=== PATIENT | male | born 1985 | race Two or more races ===

== ENCOUNTER 2025-01-18 22:42 | Emergency (ER) | payer MEDICAID, SELFPAY ==
[2025-01-18 22:42] VITALS: BMI 37.0
--- NOTE | 2025-01-18 22:45 | EKG_ITS ---
[facility] Test Date: 2025-01-18 Pat Name: KEVIN DIAS Department: Room: - Gender: Male [employer]: : 1985 Requested By: ED Temporary Provider Order Number: [id number] Reading MD: ED Temporary Provider Measurements Intervals [place] Rate: 76 P: 28 IN: 138 QRS: 81 QRSD: 110 T: 31 QT: 363 QTc: 409 Interpretive Statements SINUS RHYTHM Compared to ECG 11/05/2020 01:51:50 Intraventricular conduction delay no longer present /store/S0/[id number]
[2025-01-18 22:54] VITALS: BP 157/96; PULSE 73; RESP 18; TEMP 36.7; O2SAT 98
--- NOTE | 2025-01-18 23:04 | XR_ITS ---
Examination: Upright PA chest single view Technique: Upright PA chest single view Exam date and time: January 18, 2025 11:11 PM Indications: Left-sided chest pain beginning 2 days ago. Findings: Normal heart size. Lungs are clear. The osseous structures are intact Impression: No active disease
[2025-01-19 01:26] VITALS: BP 147/80; PULSE 78; RESP 16; TEMP 36.7; O2SAT 96
--- NOTE | 2025-01-19 02:08 | EDNOTE_ITS ---
ED Chest Pain RME/HPI General Chief Complaint: Chest Pain Stated Complaint: LEFT SIDE CHEST TINGLING X 2DAYS Time Seen by Provider: 01/18/25 23:04 Arrival date/time: 01/18/25 22:42 39M with no significant PMH presents to ED with 2 days of intermittent L-sided CP that is somewhat worse with movement. Patient denies URI symptoms and SOB. Limitations: no limitations Related Data Previous Rx's ?Medication ?Instructions ?Recorded cephalexin 500 mg capsule 500 mg PO QID #40 caps 03/15 Allergies Allergy/AdvReac Type Severity Reaction Status Date / Time No Known Allergies Allergy Verified 03/13/23 18:17 Review of Systems Review of Systems Systems Reviewed: All systems reviewed, normal except as documented Constitutional Constitutional: Reports system reviewed and no additional complaints, except as documented, Denies fever(s) and Denies headache(s) ENT Ears, Nose, Mouth, and Throat: Denies disequilibrium and Denies headache(s) Cardiovascular Cardiovascular: Reports system reviewed and no additional complaints, except as documented, Reports as per HPI, Reports chest pain and Denies dyspnea Respiratory Respiratory: Reports system reviewed and no additional complaints, except as documented, Denies cough and Denies dyspnea Gastrointestinal Gastrointestinal: Reports system reviewed and no additional complaints, except as documented, Denies abdominal pain, Denies nausea and Denies vomiting Neurologic Neurologic: Reports system reviewed and no additional complaints, except as documented, Denies confusion, Denies disequilibrium and Denies headache(s) Psychiatric Psychiatric: Denies confusion Past Medical History Past Medical History NEUROLOGIC: Negative Cerebrovascular Accident or Seizures CARDIAC: Positive Cellulitis (Anterior right lower leg); Negative Cardiac Disorders, Congestive Heart Failure or Hypertension RESPIRATORY: Negative Chronic Obstructive Pulmonary Disease (COPD), Asthma or Tuberculosis GASTROINTESTINAL: Negative Hepatitis, Cirrhosis or Pancreatitis GENITOURINARY: Negative Renal Disease or Dialysis MUSCULOSKELETAL: Positive Musculoskeletal Disorders (Right lower leg debridment 7 years ago, infected wound) and Fractures (Fractured left elbow at a kid) ENDOCRINE: Negative Diabetes Mellitus Type 1, Diabetes Mellitus Type 2, Hypoglycemia or Hyperthyroidism HEMATOLOGIC: Negative Anemia or Sickle Cell Disease PSYCHO/SOCIAL: Negative Depression or Anxiety OTHER HISTORY: Negative Blood Transfusions or Cancer Social History SMOKING STATUS: Never smoker SUBSTANCE USE: does not use ED Exam General Limitations: Present no limitations General appearance: Present alert, in no apparent distress and anxious Head Head exam: Present atraumatic Eye Eye exam: Present normal appearance, PERRL and EOMI ENT ENT exam: Present normal exam, normal oropharynx and mucous membranes moist Neck Neck exam: Present normal inspection, full ROM and trachea midline Chest Chest inspection: Present normal inspection and symmetric chest wall rise Respiratory Respiratory exam: Present normal lung sounds bilaterally Cardiovascular Cardiovascular exam: Present regular rate, normal rhythm and normal heart sounds Abdominal Exam Abdominal exam: Present soft and normal bowel sounds Extremities Exam Extremities exam: Present normal inspection and full ROM Back Exam Back exam: Present normal inspection and full ROM Neurological Exam Neurological exam: Present alert, oriented X3 and CN II-XII intact Psychiatric Psychiatric exam: Present normal affect and normal mood Skin Skin exam: Present warm, dry, intact and normal color Course Quality Measures none Orders Category Date Time Status EKG (ED ONLY) *Do not use* NOW Care 01/18/25 22:45 Completed EKG (ED Only) Stat Exams 01/18/25 22:45 Draft XR chest 1V portable Stat Exams 01/18/25 23:04 Completed Vital Signs Vital signs: Vital Signs Temperature 98.1 F 01/18/25 22:54 Pulse Rate 73 01/18/25 22:54 Respiratory Rate 18 01/18/25 22:54 Blood Pressure 157/96 H 01/18/25 22:54 Pulse Oximetry (%) 98 01/18/25 22:54 Oxygen Delivery Method Room Air 01/18/25 22:54 O2 at 98% on RA and WNLs Chest Pain MDM Narrative MDM Narrative:: 39M with no significant PMH presents to ED with 2 days of intermittent L-sided CP that is somewhat worse with movement. Patient denies URI symptoms and SOB. Physical exam reveals clear lungs. RRR. Patient is afebrile, alert, but anxious. EKG is NSR. CXR normal. Patient observed for 2 hours w/o neg changes; CP improved w/o any intervention. Likely anxiety-related. Patient data External records reviewed:: [facility] previous records Clinical information provided by:: patient Social determinants that could affect healthcare access:: none Patient has the following chronic illnesses:: none How is presenting disease/condition affected by chronic disease/condition?: no chronic disease Evaluation data The following diagnostics were reviewed and interpreted by me:: radiology exam(s) and EKG tracing(s) Lab and/or radiology exams considered but not ordered:: ordered Interpretation Summary: above Medications / Prescriptions Medications or Prescriptions considered but not ordered:: not ordered Medication administrations:: n/a Consultations Consultation(s) initiated? (list below): No Diagnosis Chest Pain Differential Diagnosis: fracture of rib, pneumothorax, stable angina, unstable angina pectoris, atypical chest pain, st elevation myocardial infarction, costochondritis, chest pain, biliary colic and other (anxiety, PE) Most likely diagnosis given after review of the tests above:: atypical chest pain Admission Indicated Admission indicated?: not indicated Admission Request Was there a request for admission?: No Disposition Plan Disposition Plan: Discharge Discharge Attestation Discharge Attestation: The patient and all family members were given an opportunity to ask questions and understood the discharge instructions. Discharge instructions specifically effects, indications for sooner follow up or return to the emergency department, and the expected course of current diagnosis. Patient condition: Stable Discharge Plan Plan Patient Disposition: HOME (Self Care) Disposition Comment: Stable Prescriptions/Referrals Prescriptions/Med Rec: No Action cephalexin 500 mg capsule 500 mg PO QID Qty: 40 0RF Referrals: No Primary/Family,Physician [Primary Care Provider] - In 1 week Problem List Clinical Impression: Atypical chest pain Patient/Caregiver Discharge Instructions Education Materials: ED Chest Pain, Uncertain Cause Additional Instructions: Please follow-up with PCP within 24-48 hours and return immediately if symptoms worsen. Print Language: Guyanese Stand Alone Forms: Patient Portal Info Letter KANIKA/LORETA Supervising Physician BETHANY Supervising Physician: Dr. Mike
== END 2025-01-19 01:43 | disposition home or self-care (01) ==
PROVIDERS: Emergency Provider Emergency Medicine
DX: R07.89 Other chest pain (principal)
CPT/HCPCS: 71045; 93005; 99283

== ENCOUNTER 2025-05-27 19:29 | Emergency (ER) | payer MEDICAID, SELFPAY ==
[2025-05-27 19:33] VITALS: BMI 37.0
--- NOTE | 2025-05-27 20:22 | PC.NURSE ---
PT INFORMED ME THAT HE IS LEAVING AND COMEBACK TOMORROW.
== END 2025-05-27 20:23 | disposition left against medical advice (07) ==
LOC: SERX 20:26
PROVIDERS: Emergency Provider Emergency Medicine
DX: Z53.21 Procedure and treatment not carried out due to patient leaving prior to being seen by health care provider (principal)
CPT/HCPCS: 99283

== ENCOUNTER 2025-07-24 21:34 | Inpatient (IN) | payer MEDICAID, SELFPAY ==
[2025-07-24 21:38] VITALS: BMI 37.8
[2025-07-24 21:55] VITALS: BP 109/72; PULSE 115; RESP 20; TEMP 38.5; O2SAT 97
--- NOTE | 2025-07-24 22:03 | PD.EDEXREM ---
ED Extremity Problem RME/HPI General Chief complaint: General Adult/Misc Complain Stated complaint: R LEG PAIN REDNESS AND SWELLING ITCHING Time Seen by Provider: 07/24/25 22:08 Arrival date/time: 07/24/25 21:34 RME / HPI RME / HPI Narrative: See [facility] for Dr. Aparicio's HPI documentation. Related Data Previous Rx's ?Medication ?Instructions ?Recorded cephalexin 500 mg capsule 500 mg PO QID #40 caps 03/15/23 Allergies Allergy/AdvReac Type Severity Reaction Status Date / Time No Known Allergies Allergy Verified 07/24/25 21:42 Review of Systems Review of Systems Systems Reviewed: All systems reviewed, normal except as documented Past Medical History Past Medical History NEUROLOGIC: Negative Cerebrovascular Accident or Seizures CARDIAC: Positive Cellulitis (Anterior right lower leg); Negative Cardiac Disorders, Congestive Heart Failure or Hypertension RESPIRATORY: Negative Chronic Obstructive Pulmonary Disease (COPD), Asthma or Tuberculosis GASTROINTESTINAL: Negative Hepatitis, Cirrhosis or Pancreatitis GENITOURINARY: Negative Renal Disease or Dialysis MUSCULOSKELETAL: Positive Musculoskeletal Disorders (Right lower leg debridment 7 years ago, infected wound) and Fractures (Fractured left elbow at a kid) ENDOCRINE: Negative Diabetes Mellitus Type 1, Diabetes Mellitus Type 2, Hypoglycemia or Hyperthyroidism HEMATOLOGIC: Negative Anemia or Sickle Cell Disease PSYCHO/SOCIAL: Negative Depression or Anxiety OTHER HISTORY: Negative Blood Transfusions or Cancer Social History SMOKING STATUS: Never smoker SUBSTANCE USE: does not use ED Exam Narrative Physical exam: See [facility] for Dr. Aparicio's physical exam documentation. Course Course Course Narrative: 2205: Sepsis alert initiated. Orders made at this time are congruent with ED Adult Sepsis Order List. Re-evaluation is to be completed. 2245: NS IVF started. Sepsis re-evaluation pending at the time of admission. Quality Measures none Orders Category Date Time Status Bedside COVID-19 Antigen Test NOW Care 07/24/25 22:05 Active Bedside Influenza A&B Antigen Test NOW Care 07/24/25 22:05 Completed Saline [Insert IV] NOW Care 07/24/25 22:05 Active Straight [In and Out Catheter] X1 Care 07/24/25 22:05 Completed XR chest 1V portable Stat Exams 07/24/25 22:07 Completed Bilirubin,Direct Stat Lab 07/24/25 22:51 Completed Blood Culture (Lab) Stat Lab 07/24/25 22:54 Received CBC Stat Lab 07/24/25 22:51 Completed CMP [Comprehensive Metabolic Panel] Stat Lab 07/24/25 22:51 Completed CRP [C-Reactive Protein] Stat Lab 07/24/25 22:51 Completed ESR [Sed Rate (ESR)] Stat Lab 07/24/25 22:51 Completed Lactate (Lactic Acid) Stat Lab 07/24/25 22:51 Completed Magnesium Stat Lab 07/24/25 22:51 Completed Procalcitonin Stat Lab 07/24/25 22:51 Completed UA, C/S IF [Urinalysis, C/S if Indicated] Stat Lab 07/24/25 23:46 Completed Acetaminophen Tab [Tylenol ES Tab] Med 07/24/25 22:05 Discontinued 1,000 mg PO X1 ONE Ketorolac Inj [Toradol Inj] Med 07/24/25 22:05 Discontinued 30 mg IVP X1 ONE MethylPREDNISolone.* [SoluMEDROL Inj] Med 07/24/25 22:05 Discontinued 125 mg IVP X1 ONE Sodium Chloride 0.9% 1000 ml [Ns] 1,000 ml Med 07/24/25 22:05 Discontinued IV 999 mls/hr Sodium Chloride 0.9% 1000 ml [Ns] 1,000 ml Med 07/24/25 22:06 Discontinued IV 999 mls/hr Sodium Chloride 0.9% 1000 ml [Ns] 1,000 ml Med 07/24/25 22:06 Discontinued IV 999 mls/hr ceFAZolin/D5W 2 GM IV [Ancef 2gm Ivpb] Med 07/24/25 22:05 Discontinued 2 gm in 100 ml IV X1 Vital Signs Vital signs: Vital Signs Temperature 101.3 F H 07/24/25 21:55 Pulse Rate 115 H 07/24/25 21:55 Respiratory Rate 20 07/24/25 21:55 Blood Pressure 109/72 07/24/25 21:55 Pulse Oximetry (%) 97 07/24/25 21:55 Oxygen Delivery Method Room Air 07/24/25 21:55 Extremity Problem MDM Narrative MDM Narrative:: This section includes all my notes and documentations, including HPI, PE, and ED course. Helder Aparicio MD HPI: 40yo male here with fever, chills, generalized body aches, dry cough, generalized weakness, and redness to his RLE. No sore throat or vomiting. No other complaints reported. ROS: All negative except as documented in HPI. Physical Exam: General: Alert and oriented. Appearance of malaise noted. Eyes: Conjunctivae and lids clear. ENT: No nasal congestion. Pharynx normal. Tympanic membrane normal bilaterally. Neck: Supple. No lymphadenopathy. Heart: Sinus tachycardia noted. Lungs: No respiratory distress. Good air movement. No rhonchi, wheezing, rales. Abdomen: Soft and nontender. Normal bowel sounds. No distension. No rebound or guarding. Back: No CVA tenderness. Skin: Warm and dry. In the right lower leg, there is apple sized erythema with edema/calor/tenderness. Neuro: Alert and oriented X 3. Cranial Nerves II-XII grossly intact. No peripheral motor deficits. Lymph nodes: Right inguinal adenopathy noted. I reviewed all diagnostic test results. My interpretation of the EKG is sinus tachycardia with nonspecific ST-T changes. My interpretation of the chest x-ray is NAD. Blood tests remarkable for WBC 16.6, Lactic Acid 2.1, CRP 1.8. At this point, diagnoses include: Cellulitis Sepsis Right inguinal lymphadenopathy Treatment here included: Tylenol Ancef IV fluid Toradol Solumedrol Patient remained stable. I discussed the case with our hospitalist. About the presentation and exam and diagnostics and treatments here. And need of further care in the hospital. Will accept the patient. Helder Aparicio MD Patient data External records reviewed:: [facility] previous records (Per chart review, patient was admitted here on 03/13/23 for cellulitis.) Clinical information provided by:: patient Social determinants that could affect healthcare access:: none Patient has the following chronic illnesses:: none How is presenting disease/condition affected by chronic disease/condition?: no chronic disease Evaluation data The following diagnostics were reviewed and interpreted by me:: lab results, radiology exam(s) and EKG tracing(s) (My interpretation of the EKG is: Sinus tachycardia (107 bpm) with nonspecific ST-T changes. Helder Aparicio MD) Lab and/or radiology exams considered but not ordered:: none Interpretation Summary: I reviewed all diagnostic test results. My interpretation of the EKG is sinus tachycardia with nonspecific ST-T changes. My interpretation of the chest x-ray is NAD. Blood tests remarkable for WBC 16.6, Lactic Acid 2.1, CRP 1.8. Medications / Prescriptions Medications or Prescriptions considered but not ordered:: none Medication administrations:: Medication Administration History Acetaminophen (Acetaminophen 325 Mg Tablet) 650 mg PO Q6H PRN PRN Reason: Fever >101.5 Stop: 08/24/25 01:15 Acetaminophen (Acetaminophen 325 Mg Tablet) 650 mg PO Q6H PRN PRN Reason: PAIN SCALE 1-3 (mild Stop: 08/24/25 01:15 Heparin Sodium (Porcine) (Heparin Sod Inj 5000 Unit/Ml Vial) 5,000 unit SC BID CEE Stop: 08/08/25 05:59 Ondansetron HCl (Ondansetron Inj 2 Mg/Ml Inj 2 Ml) 4 mg IVP Q6H PRN; Protocol PRN Reason: NAUSEA OR VOMITING Stop: 08/24/25 01:15 Sennosides (Senna Tablet) 1 tab PO QDAY CEE; Protocol Stop: 08/24/25 08:59 Discontinued Medications Acetaminophen (Acetaminophen 500 Mg Tablet) 1,000 mg PO X1 ONE Stop: 07/24/25 22:06 Last Admin: 07/24/25 22:36 Dose: 1,000 mg Documented By: KASSANDRA Cefazolin Sodium (Ancef 2gm Ivpb) 2 gm in 100 mls @ 200 mls/hr IV X1 ONE Stop: 07/24/25 22:34 Last Infusion: 07/24/25 23:46 Dose: Infused Documented By: Admin: 07/24/25 22:46 Dose: 200 mls/hr Documented By: KASSANDRA Sodium Chloride (Ns) 1,000 mls @ 999 mls/hr IV .Q1H1M ONE Stop: 07/24/25 23:05 Last Infusion: 07/24/25 23:47 Dose: Infused Documented By: Admin: 07/24/25 22:45 Dose: 999 mls/hr Documented By: KASSANDRA Sodium Chloride (Ns) 1,000 mls @ 999 mls/hr IV .Q1H1M ONE Stop: 07/24/25 23:06 Last Infusion: 07/25/25 00:31 Dose: Infused Documented By: Admin: 07/24/25 22:46 Dose: 999 mls/hr Documented By: KASSANDRA Sodium Chloride (Ns) 1,000 mls @ 999 mls/hr IV .Q1H1M ONE Stop: 07/24/25 23:06 Last Infusion: 07/25/25 00:43 Dose: Infused Documented By: Admin: 07/24/25 22:45 Dose: 999 mls/hr Documented By: KASSANDRA Ketorolac Tromethamine (Ketorolac Inj 30 Mg/Ml Vial) 30 mg IVP X1 ONE Stop: 07/24/25 22:06 Last Admin: 07/24/25 22:34 Dose: 30 mg Documented By: KASSANDRA Methylprednisolone Sodium Succinate (Methylprednisolone Sod Succ 62.5 Mg/Ml 2ml Vial) 125 mg IVP X1 ONE Stop: 07/24/25 22:06 Last Admin: 07/24/25 22:33 Dose: 125 mg Documented By: KASSANDRA From [place], patient received Tylenol, Ancef, IV fluid, Toradol, Solumedrol. Consultations Consultation(s) initiated? (list below): Yes Consultation #1 (Physician, Specialty, Details): I discussed the case with our hospitalist. About the presentation and exam and diagnostics and treatments here. And need of further care in the hospital. Will accept the patient. Diagnosis Extremity Problem Differential Diagnosis: cellulitis and other (UTI, pneumonia, COVID, influenza, sepsis) Most likely diagnosis given after review of the tests above:: Cellulitis, Sepsis, right inguinal lymphadenopathy Admission Indicated Admission indicated?: indicated Explain why admission is indicated or not indicated:: Cellulitis, Sepsis Admission Request Was there a request for admission?: Yes Admission Attestation Admission request attestation: Discussed case with Hospitalist service regarding admission. Discussed patients ED course, exam findings, labs, and radiology results. The Hospitalist [agrees] to accept the patient for admission. Disposition Plan Disposition Plan: Admit Critical Care Time Critical Care Time Critical Care Time: Yes Total Critical Care Time (min.): 40 Attestation: Due to a high probability of clinically significant, life threatening deterioration, the patient required my highest level of preparedness to intervene emergently and I personally spent this critical care time directly and personally managing the patient. This critical care time included obtaining a history; examining the patient; ordering and review of studies; arranging urgent treatment with development of a management plan; evaluation of patient's response to treatment; frequent reassessment; and discussions with family and other providers. It was exclusive of separately billable procedures and treating other patients and teaching time. Helder Aparicio MD Discharge Plan Plan Patient Disposition: Admit Acute Care w/in Hospital Problem List Clinical Impression: Sepsis, Cellulitis, Lymphadenopathy, inguinal
--- NOTE | 2025-07-24 22:07 | XR_ITS ---
Examination: AP chest single view Technique: AP portable upright chest single view Date and time: July 24, 2025 1058 hrs. Indications: Coughing fever today. Findings: No significant cardiac enlargement No pneumonia or pulmonary edema. Mild osteopenia Impression: No pneumonia or pulmonary edema
[2025-07-24] MEDS: MethylPREDNISolone SOD SUCC 62.5 MG/ML 2ML VIAL 125 MG IVP (22:33)
[2025-07-24 22:34] VITALS: TEMP 38.5
[2025-07-24] MEDS: KETOROLAC INJ 30 MG/ML VIAL IVP (22:34)
[2025-07-24 22:36] VITALS: TEMP 38.5
[2025-07-24] MEDS: ACETAMINOPHEN 500 MG TABLET 1000 MG PO (22:36)
[2025-07-24] MEDS: SODIUM CHLORIDE 0.9% 1000 ML 1,000 ML 999 ML IV ×3 (22:45→22:46)
[2025-07-24] MEDS: ceFAZolin/D5W 2 GM IV 2 GM/100 ML BAG IV (22:46)
[2025-07-24 22:59] LABS: Lactate (Lactic Acid) 2.1 mMol/L (0.4-2.0)
[2025-07-24 23:00] LABS: Basophils # (Auto) 0.0 Thou/mm3 (0.0-0.2); Basophils % (Auto) 0 % (0-2.5); Eosinophils # (Auto) 0.0 Thou/mm3 (0.0-0.5); Eosinophils % (Auto) 0 % (0-10); Hematocrit 37.6 % (41.0-53.0); Hemoglobin 13.0 g/dL (13.5-16.0); Immature Granulocytes Auto 0.11 Thou/mm3 (0.00-0.00); Lymphocytes # (Auto) 0.6 Thou/mm3 (1.0-4.8); Lymphocytes % (Auto) 3 % (10-50); Mean Corpuscular HGB Conc 34.6 g/dl (31.0-37.0); Mean Corpuscular Hemoglobin 29.3 pg (25.0-35.0); Mean Corpuscular Volume 85 fL (80-100); Monocytes # (Auto) 0.6 Thou/mm3 (0.0-0.8); Monocytes % (Auto) 4 % (0-12); Neutrophils # (Auto) 15.3 Thou/mm3 (1.8-7.7); Neutrophils % (Auto) 92 % (37-80); Nucleated Red Blood Cell # 0.00 Thou/mm3 (0.00-0.00); Nucleated Red Blood Cell % 0 /100 WBC (0); Platelet Count 285 Thou/mm3 (140-440); RDW Standard Deviation 39.4 fL (35.1-43.9); Red Blood Count 4.44 Miln/mm3 (4.50-5.90); White Blood Count 16.6 Thou/mm3 (3.8-10.6)
[2025-07-24 23:13] LABS: Sed Rate (ESR) 22 mm/hr (0-15)
[2025-07-24 23:28] LABS: Alanine Aminotransferase 37 U/L (10-49); Albumin, Serum 4.4 gm/dL (3.5-5.0); Albumin/Globulin Ratio 1.6 (1.2-2.2); Alkaline Phosphatase 90 U/L (46-116); Anion Gap 12 (7-16); Aspartate Amino Transferase 29 U/L (0-34); BUN/Creatinine Ratio 13 Ratio (12-20); Bilirubin,Direct 0.1 mg/dL (0.0-0.3); Bilirubin,Total 0.4 mg/dL (0.3-1.2); Blood Urea Nitrogen 13 mg/dL (9-23); C-Reactive Protein 1.8 mg/dL (0.0-0.9); Calcium 9.4 mg/dL (8.3-10.6); Calcium (Corrected) 9.4 mg/dL (8.5-10.1); Carbon Dioxide 23.2 mMol/L (20.0-31.0); Chloride 105 mMol/L (98-107); Creatinine (Component) 1.0 mg/dL (0.6-1.3); Estimated Creatinine Clearance 106.9 mL/min (>60); Globulin 2.8 gm/dL (2.3-3.5); Glucose 96 mg/dL (74-106); Magnesium 1.6 mg/dL (1.6-2.6); Osmolality,Calculated 279 (275-295); Potassium 3.5 mMol/L (3.4-5.1); Procalcitonin 0.42 ng/ml (0.0-0.49); Sodium 140 mMol/L (136-145); Total Protein 7.2 gm/dL (5.7-8.2); eGFR > 60 See Note
[2025-07-24 23:44] VITALS: BP 106/68; PULSE 105; RESP 23; TEMP 38.1; O2SAT 96
[2025-07-24 23:46] VITALS: TEMP 38.1
[2025-07-24 23:53] LABS: Collection Type, Urine Clean Catch
[2025-07-25 00:01] LABS: Amorphous Crystals,Urine Present (Absent); Bacteria,Urine Rare; Bilirubin,Urine Negative (Negative); Blood,Urine Negative (Negative); Clarity,Urine Clear (Clear/Hazy); Color,Urine Yellow (Lt Yel-Yel); Culture Indicated,Urine Not Indicated; Glucose, Urine Negative (Negative); Ketones,Urine Negative (Negative); Leukocyte Esterase,Urine Positive (Negative); Nitrite,Urine Negative (Negative); PH,Urine 7.0 (5.0-7.0); Protein,Urine Trace (Neg - Trace); RBC,Urine < 1 /hpf (0-3); Specific Gravity,Urine 1.034 (1.001-1.035); Squamous Epithelial Cell,Urine 2 /hpf (0-5); Urobilinogen,Urine 4.0 mg/dL (0.0-1.0); WBC,Urine 10 /hpf (0-5)
[2025-07-25 01:19] VITALS: BP 100/65; PULSE 98; RESP 18; TEMP 37; O2SAT 95
[2025-07-25 01:55] LABS: Reflex Lactate? Y
[2025-07-25 02:15] LABS: Lactic Acid, 3 HR 1.2 mMol/L (0.4-2.0)
[2025-07-25 02:52] VITALS: BP 108/61; PULSE 90; RESP 18; TEMP 37; O2SAT 95
[2025-07-25 03:03] VITALS: BMI 37.6
[2025-07-25 04:00] VITALS: BP 113/65; PULSE 96; RESP 18; TEMP 36.5; O2SAT 98
[2025-07-25 06:15] LABS: Basophils # (Auto) 0.0 Thou/mm3 (0.0-0.2); Basophils % (Auto) 0 % (0-2.5); Eosinophils # (Auto) 0.0 Thou/mm3 (0.0-0.5); Eosinophils % (Auto) 0 % (0-10); Hematocrit 36.2 % (41.0-53.0); Hemoglobin 12.4 g/dL (13.5-16.0); Immature Granulocytes Auto 0.12 Thou/mm3 (0.00-0.00); Lymphocytes # (Auto) 0.3 Thou/mm3 (1.0-4.8); Lymphocytes % (Auto) 2 % (10-50); Mean Corpuscular HGB Conc 34.3 g/dl (31.0-37.0); Mean Corpuscular Hemoglobin 29.3 pg (25.0-35.0); Mean Corpuscular Volume 86 fL (80-100); Monocytes # (Auto) 0.1 Thou/mm3 (0.0-0.8); Monocytes % (Auto) 1 % (0-12); Neutrophils # (Auto) 16.5 Thou/mm3 (1.8-7.7); Neutrophils % (Auto) 97 % (37-80); Nucleated Red Blood Cell # 0.00 Thou/mm3 (0.00-0.00); Nucleated Red Blood Cell % 0 /100 WBC (0); Platelet Count 249 Thou/mm3 (140-440); RDW Standard Deviation 40.1 fL (35.1-43.9); Red Blood Count 4.23 Miln/mm3 (4.50-5.90); White Blood Count 17.1 Thou/mm3 (3.8-10.6)
[2025-07-25] MEDS: HEPARIN SOD INJ 5000 UNIT/ML VIAL SC ×3 (06:29→21:46)
--- NOTE | 2025-07-25 06:38 | PD.RESHP ---
Documentation for date of: 07/25/25 [facility] History of Present Illness Chief complaint: generalized weakness, redness and pain right lower legs History of present illness: Mr. Rico is a a 40-year-old with no significant past medical history who presented to the ED on 07/24/2025 with chief complaint of 1 day of generalized body weakness, right leg pain and weakness. Patient presents with fever, chills, diaphoresis, generalized bodyaches and right leg redness and itchiness. He reports no recent sick contact. Patient had similar symptoms about 2 years ago, RLE cellutis proximal to the injury scar on lower leg. He was previously admitted and treated with antibiotics and IV fluids. Recently patient that the redness flareup and itchiness was acute in onset with no contributory factors factors. Patient denies shortness of breath, chest pain, abdominal pain, vomiting, and urinary changes. ED Course: -Initial vitals were BP 109/72, pulse 115, respiratory 23, temp 101.3, O2 sat 97% on room air. -Labs significant for leukocytosis with WBC 16.6, hemoglobin 13, hematocrit 34, ESR 22, lactic acid 2.1, -Imaging included chest x-ray negative for pneumonia and pulmonary edema. -In the ED, patient was given methylprednisolone, 3 L of NS,cefazolin -Patient was admitted for sepsis in the setting of right lower extremity cellulitis. Review of Systems Review of systems otherwise negative except what is mentioned above. Past Medical History: Family History: Father has hypertension, Surgical History: Debridement of right lower extremity 10 years ago. Social History: Denies history of smoking, denies current alcohol use, denies recreational drug use Current Medications: (Source: ) Allergies: No known drug allergies Exam Vital Signs Temp Pulse Resp BP Pulse Ox O2 Del Method 97.7 F 96 18 113/65 98 Room Air 07/25/25 04:00 07/25/25 04:00 07/25/25 04:00 07/25/25 04:00 07/25/25 04:00 07/25/25 04:00 Narrative Exam General: Alert, no acute distress.Conversational and non-toxic appearing. Skin: Warm, dry, intact. No rash or ecchymoses. Head: Normocephalic, atraumatic. Eye: Normal conjunctiva, PERRL. Throat: Oral mucosa moist. No obvious lesions in oropharynx. Cardiovascular: Regular rate and rhythm, no murmur, +S1/S2. Respiratory: Lungs are clear to auscultation, respirations unlabored, no crackles, no wheezing. Gastrointestinal: Soft, nontender, non-distended. No guarding or rebound tenderness. Extremities: Right lower extremity erythematous, mildly tender to palpation. No edema, no cyanosis, no clubbing. Neuro: Alert and oriented x3.No focal deficits observed. Conversant, moving all extremities. No overt cerebellar signs/incoordination. Psychiatric: Cooperative, appropriate affect Results: Labs 07/26/25 04:16 07/26/25 04:16 Labs: Short CBC 07/24/25 07/25/25 Range/Units 22:51 05:00 WBC 16.6 H 17.1 H (3.8-10.6) Thou/mm3 Hgb 13.0 L 12.4 L (13.5-16.0) g/dL Hct 37.6 L 36.2 L (41.0-53.0) % Plt Count 285 249 D (140-440) Thou/mm3 BMP 07/24/25 22:51 Sodium 140 Potassium 3.5 Chloride 105 Carbon Dioxide 23.2 BUN 13 Creatinine 1.0 Glucose 96 Calcium 9.4 Liver Function 07/24/25 Range/Units 22:51 Total Bilirubin 0.4 (0.3-1.2) mg/dL Direct Bilirubin 0.1 (0.0-0.3) mg/dL AST 29 (0-34) U/L ALT 37 (10-49) U/L Alkaline Phosphatase 90 (46-116) U/L Albumin 4.4 (3.5-5.0) gm/dL Urine 07/24/25 Range/Units 23:46 Urine Color Yellow (Lt Yel-Yel) Urine Clarity Clear (Clear/Hazy) Urine pH 7.0 (5.0-7.0) Ur Specific [place] 1.034 (1.001-1.035) Urine Protein Trace (Neg - Trace) Urine Glucose (UA) Negative (Negative) Quality Measures Quality Measures VTE prophylaxis Medications Home Medications and Allergies Allergies Allergy/AdvReac Type Severity Reaction Status Date / Time No Known Allergies Allergy Verified 07/24/25 21:42 Visit Medications Acetaminophen (Acetaminophen 325 Mg Tablet) 650 mg PO Q6H PRN PRN Reason: Fever >101.5 Stop: 08/24/25 01:15 Acetaminophen (Acetaminophen 325 Mg Tablet) 650 mg PO Q6H PRN PRN Reason: PAIN SCALE 1-3 (mild Stop: 08/24/25 01:15 Heparin Sodium (Porcine) (Heparin Sod Inj 5000 Unit/Ml Vial) 5,000 unit SC BID CEE Stop: 08/08/25 05:59 Last Admin: 07/25/25 06:29 Dose: 5,000 unit Ceftriaxone Sodium/Dextrose (Rocephin/D5w 1gm Iv Premix) 1 gm in 50 mls @ 100 mls/hr IV QDAY [facility] Stop: 08/01/25 08:59 Ondansetron HCl (Ondansetron Inj 2 Mg/Ml Inj 2 Ml) 4 mg IVP Q6H PRN; Protocol PRN Reason: NAUSEA OR VOMITING Stop: 08/24/25 01:15 Sennosides (Senna Tablet) 1 tab PO QDAY [facility]; Protocol Stop: 08/24/25 08:59 Discontinued Medications Acetaminophen (Acetaminophen 500 Mg Tablet) 1,000 mg PO X1 ONE Stop: 07/24/25 22:06 Last Admin: 07/24/25 22:36 Dose: 1,000 mg Cefazolin Sodium (Ancef 2gm Ivpb) 2 gm in 100 mls @ 200 mls/hr IV X1 ONE Stop: 07/24/25 22:34 Last Infusion: 07/24/25 23:46 Dose: Infused Sodium Chloride (Ns) 1,000 mls @ 999 mls/hr IV .Q1H1M ONE Stop: 07/24/25 23:05 Last Infusion: 07/24/25 23:47 Dose: Infused Sodium Chloride (Ns) 1,000 mls @ 999 mls/hr IV .Q1H1M ONE Stop: 07/24/25 23:06 Last Infusion: 07/25/25 00:31 Dose: Infused Sodium Chloride (Ns) 1,000 mls @ 999 mls/hr IV .Q1H1M ONE Stop: 07/24/25 23:06 Last Infusion: 07/25/25 00:43 Dose: Infused Ketorolac Tromethamine (Ketorolac Inj 30 Mg/Ml Vial) 30 mg IVP X1 ONE Stop: 07/24/25 22:06 Last Admin: 09/08/25 22:34 Dose: 30 mg Methylprednisolone Sodium Succinate (Methylprednisolone Sod Succ 62.5 Mg/Ml 2ml Vial) 125 mg IVP X1 ONE Stop: 07/24/25 22:06 Last Admin: 07/24/25 22:33 Dose: 125 mg Assessment & Plan Plan Mr. Rico is a a 40-year-old with no significant past medical history who presented to the ED on 07/24/2025 with chief complaint of 1 day of generalized body weakness, right leg pain and weakness. Deficits in the setting of right leg cellulitis. #Sepsis in setting of right leg cellulitis # Leukocytosis Presented with acute onset right lower extremity redness,itchiness mild pain on palpation. Additionally concern for sepsis due to pt presentation on admission and significant labs findings of on admission patient had leukocytosis with WBC 17.1, lactic acid 2.1, temp 101.3. and tachycardia w/pulse of 115. Per septic protocol patient received 3 L of NS, Tylenol for fever. Patient received cefazolin and methylprednisolone in the ED. Plan - Continue ceftriaxone 1gm - Follow-up blood culture - Pain control with acetaminophen - Follow-up a.m. labs. Hospital management: Lines: peripheral IV Diet: regular Bowel: senna DVT prophylaxis: Heparin SC Disposition: MedSurg for sepsis in setting of right lower extremity cellulitis. CODE STATUS: Full code Patient seen and assessed under supervision of attending physician Dr.Alhalaibeh Lis Blackman MD PGY-1, Internal Medicine Please note: this document was transcribed using voice recognition technology; minor inaccuracies may be present. Attending Provider Attestation/Addendum After examination of the patient and review of the clinical data I feel that this patient needs admission to the hospital for further treatment/evaluation. Plan of care discussed with patient and is in agreement. I Kathryn Moe MD, attest that I was physically present for nuñez portions of evaluation, and examined patient, labs and imagings and plan of care were discussed with IM residents team, and I agree with the findings and plans documented above.
[2025-07-25 06:42] LABS: Anion Gap 13 (7-16); BUN/Creatinine Ratio 12 Ratio (12-20); Blood Urea Nitrogen 14 mg/dL (9-23); Calcium 9.5 mg/dL (8.3-10.6); Carbon Dioxide 21.2 mMol/L (20.0-31.0); Chloride 111 mMol/L (98-107); Creatinine (Component) 1.2 mg/dL (0.6-1.3); Estimated Creatinine Clearance 92.0 mL/min (>60); Glucose 179 mg/dL (74-106); Magnesium 1.9 mg/dL (1.6-2.6); Osmolality,Calculated 293 (275-295); Sodium 145 mMol/L (136-145); eGFR > 60 See Note
[2025-07-25 06:53] LABS: Potassium 2.5 mMol/L (3.4-5.1)
--- NOTE | 2025-07-25 07:18 | PC.NURSE ---
Called Dr. Ryan regarding patient potassium 2.5 and c/o BUE weakness. Per MD call Dr. Bailey at 0730. No new orders received.
--- NOTE | 2025-07-25 07:32 | PC.NURSE ---
Called Dr. Duvall regarding patient potassium 2.5 and c/o BUE weakness. Per Dr. Duvall just got done with meeting will look at labs and order.
[2025-07-25 08:00] VITALS: BP 127/81; PULSE 96; RESP 18; TEMP 36.6; O2SAT 97
[2025-07-25] MEDS: cefTRIAXone/D5w 1gm IV premix 1 GM/50 ML BAG IV (08:11)
[2025-07-25] MEDS: VANCOMYCIN/D5W 1500 MG IVPB 300 ML 120 MG IV ×2 (11:51→21:45)
--- NOTE | 2025-07-25 15:42 | PC.SS ---
Patient is alert/oriented. Patient was able to verify demographics. Patient was admitted for leg cellulitis. Patient states he resides with his and kids. Patient is independent with ADL's. Patient will be returing home upon discharge. Patient is currently on iv. antibiotics. He will d/c tomorrow on oral antibiotics. Pharmacy: [facility] PCP: HALIMA Reyna medical decision maker: , Lily Plascencia, transportation: family
[2025-07-25 15:55] VITALS: BP 123/67; PULSE 89; RESP 16; TEMP 36.1; O2SAT 98
--- NOTE | 2025-07-25 17:36 | ESPR_ITS ---
<Statement entered by Coty Ryan MD - 08/07/25 09:05> I reviewed above note and agree with findings and plans. I have also personally examined the patient with medicine team and went over assessment and plan with medical team including software development intern and resident physician. <Statement entered by Kirk Duvall MD - 07/25/25 19:35> No acute overnight events. Seen and examined at bedside patient was resting comfortably in bed. He did have a fever up to 101.3 ?F overnight with some chills. Cellulitis on right lower extremity demarcated and patient states that it appears to have grown since yesterday. Started vancomycin for MRSA coverage. Labs show slight increase in WBC, K 2.5 that was replenished orally. Otherwise, we will continue IV antibiotics and follow-up cultures. ----- Note reviewed and agree with care plan as documented. Please refer to the note below for further details. Plan discussed with attending physician Dr. Shelby Duvall MD PGY-2 Internal Medicine Documentation for date of: 07/25/25 Subjective Subjective Interval history: No overnight events. Patient resting comfortably in bed. Started vancomycin today. Lactic acid trended downward, fever resolved. Exam Vital Signs Temp Pulse Resp BP Pulse Ox O2 Del Method 97.0 F 89 16 123/67 98 Room Air 07/25/25 15:55 07/25/25 15:55 07/25/25 15:55 07/25/25 15:55 07/25/25 15:55 07/25/25 15:55 Narrative Exam General: Awake and in no acute distress. Conversational and non-toxic appearing. Neurologic: GCS 15. Alert and oriented x3, no gross neurological deficit, and patient able to move all 4 extremities. HEENT: Normocephalic, atraumatic, mucous membranes moist. Pupils reactive to light. Heart: Regular rate and rhythm, normal S1 and S2, no murmurs. Lungs: Clear to auscultation bilaterally with no wheezing or crackles. Abdomen: Soft, nondistended, nontender, positive bowel sounds. No guarding or rebound tenderness. Extremities: Right lower extremity area of erythema approximately 3 inches x 5 inches, adjacent approximately 2 inch horizontal scar superior to the area of erythema. The area of erythema is warmer than the surrounding skin to the touch. It is not tender. No edema. 2+ radial and dorsalis pedis pulses bilaterally. Skin: Warm. Dry. No rash or ecchymoses. Objective Labs 07/25/25 05:00 07/25/25 05:00 Labs: Laboratory Results - last 24 hr 07/24/25 07/24/25 07/25/25 22:51 23:46 01:55 WBC 16.6 H RBC 4.44 L Hgb 13.0 L Hct 37.6 L MCV 85 MCH 29.3 MCHC 34.6 RDW Std Deviation 39.4 Plt Count 285 Neut % (Auto) 92 H Lymph % (Auto) 3 L Mason % (Auto) 4 Eos % (Auto) 0 Baso % (Auto) 0 Neut # (Auto) 15.3 H Lymph # (Auto) 0.6 L [place] # (Auto) 0.6 Eos # (Auto) 0.0 Baso # (Auto) 0.0 Immature Gran # (Auto) 0.11 H Absolute Nucleated RBC 0.00 Immature Gran % 1 H Nucleated RBC % 0 ESR 22 H Sodium 140 Potassium 3.5 Chloride 105 Carbon Dioxide 23.2 Anion Gap 12 BUN 13 Creatinine 1.0 Estim Creat Clear Calc 106.9 eGFR > 60 BUN/Creatinine Ratio 13 Glucose 96 Calculated Osmolality 279 Lactic Acid 2.1 H 1.2 Calcium 9.4 Corrected Calcium 9.4 Magnesium 1.6 Total Bilirubin 0.4 Direct Bilirubin 0.1 AST 29 ALT 37 Alkaline Phosphatase 90 C-Reactive Prot, Quant 1.8 H Total Protein 7.2 Albumin 4.4 Globulin 2.8 Albumin/Globulin Ratio 1.6 Procalcitonin 0.42 Ur Collection Type Clean Catch Urine Color Yellow Urine Clarity Clear Urine pH 7.0 Ur Specific [place] 1.034 Urine Protein Trace Urine Glucose (UA) Negative Urine Ketones Negative Urine Blood Negative Urine Nitrite Negative Urine Bilirubin Negative Urine Urobilinogen (Auto) 4.0 Ur Leukocyte Esterase Positive Urine RBC < 1 Urine WBC 10 H Ur Squamous Epith Cells 2 Amorphous Crystals Present A Urine Bacteria Rare Ur Culture Indicated? Not Indicated 07/25/25 05:00 WBC 17.1 H RBC 4.23 L Hgb 12.4 L Hct 36.2 L MCV 86 MCH 29.3 MCHC 34.3 RDW Std Deviation 40.1 Plt Count 249 D Neut % (Auto) 97 H Lymph % (Auto) 2 L Mason % (Auto) 1 Eos % (Auto) 0 Baso % (Auto) 0 Neut # (Auto) 16.5 H Lymph # (Auto) 0.3 L Mason # (Auto) 0.1 Eos # (Auto) 0.0 Baso # (Auto) 0.0 Immature Gran # (Auto) 0.12 H Absolute Nucleated RBC 0.00 Immature Gran % 1 H Nucleated RBC % 0 ESR Sodium 145 Potassium 2.5 L* D Chloride 111 H Carbon Dioxide 21.2 Anion Gap 13 BUN 14 Creatinine 1.2 Estim Creat Clear Calc 92.0 eGFR > 60 BUN/Creatinine Ratio 12 Glucose 179 H D Calculated Osmolality 293 Lactic Acid Calcium 9.5 Corrected Calcium Magnesium 1.9 Total Bilirubin Direct Bilirubin AST ALT Alkaline Phosphatase C-Reactive Prot, Quant Total Protein Albumin Globulin Albumin/Globulin Ratio Procalcitonin Ur Collection Type Urine Color Urine Clarity Urine pH Ur Specific [place] Urine Protein Urine Glucose (UA) Urine Ketones Urine Blood Urine Nitrite Urine Bilirubin Urine Urobilinogen (Auto) Ur Leukocyte Esterase Urine RBC Urine WBC Ur Squamous Epith Cells Amorphous Crystals Urine Bacteria Ur Culture Indicated? Quality Measures Quality Measures VTE prophylaxis Assessment & Plan Assessment Current Active Medications: Generic Name Dose Route Start Last Admin Trade Name Freq PRN Reason Stop Dose Admin Acetaminophen 650 mg 07/25/25 01:16 Acetaminophen 325 Mg Tablet PO 08/24/25 01:15 Q6H PRN Fever >101.5 Acetaminophen 650 mg 07/25/25 01:16 Acetaminophen 325 Mg Tablet PO 08/24/25 01:15 Q6H PRN PAIN SCALE 1-3 (mild Heparin Sodium (Porcine) 5,000 unit 07/25/25 06:00 07/25/25 08:10 Heparin Sod Inj 5000 Unit/Ml Vial SC 08/08/25 05:59 5,000 unit BID CEE Administration Ceftriaxone Sodium/Dextrose 1 gm in 50 mls @ 100 mls/hr 07/25/25 09:00 07/25/25 08:11 Rocephin/D5w 1gm Iv Premix IV 08/01/25 08:59 100 mls/hr QDAY CEE Administration Vancomycin HCl/Dextrose 300 mls @ 120 mls/hr 07/25/25 11:30 07/25/25 11:51 Vancomycin/D5w 1500 Mg Ivpb IV 08/01/25 11:29 120 mls/hr BID@1000,2200 CEE Administration Ondansetron HCl 4 mg 07/25/25 01:16 Ondansetron Inj 2 Mg/Ml Inj 2 Ml IVP 08/24/25 01:15 Q6H PRN NAUSEA OR VOMITING Protocol Pharmacy Consult 1 each 07/25/25 11:15 Vancomycin Pharmacy To Dose 1 Each Each IV 08/24/25 11:14 QDAY PRN CONSULT Sennosides 1 tab 07/25/25 09:00 07/25/25 08:11 Senna Tablet PO 08/24/25 08:59 1 tab QDAY CEE Administration Protocol Plan 40-year-old male with no significant past medical history presented with 1 day of generalized body weakness, right leg pain, and right leg weakness on 07/24/2025. He was admitted for management of his cellulitis. #Possible Sepsis in setting of right leg cellulitis #Leukocytosis #Lactic acidosis (Resolved) * Presented with acute onset right lower extremity redness,itchiness mild pain on palpation. * Patient has had multiple episodes of cellulitis over the past year and a half, every 3 months he presented to the outpatient clinic for lower extremity cellulits * He did endorse an accident several years ago when he fell off a ladder requiring surgical debridement of the wound in his right lower extremity * Additionally there was concern for sepsis due to pt presentation on admission and significant labs findings on admission with WBC 17.1, lactic acid 2.1, temp 101.3. and tachycardia w/pulse of 115. Per septic protocol patient received 3 L of NS, Tylenol for fever. Patient received cefazolin and methylprednisolone in the ED. * Lactic acid trended from 2.1 to 1.2 since admission * Fever resolved since admission * Tachycardia resolved Plan * Continue ceftriaxone 1gm * Started vancomycin 07/25/2025 in order to cover for MRSA * Recommend outpatient referral to vascular surgeon due to recurrent right lower extremity cellulitis * Follow-up blood culture * Pain control with acetaminophen #Hypokalemia * Potassium 2.5 * Patient was having weakness in his upper extremities Plan: * 40 mill EQ potassium oral * Follow-up potassium level in a.m. labs Hospital management: Lines: peripheral IV Diet: regular Bowel: senna DVT prophylaxis: Heparin SC Disposition: MedSurg for sepsis in setting of right lower extremity cellulitis. CODE STATUS: Full code Patient was seen and discussed with my attending physician Dr. Shelby RAMIREZ and my senior resident Dr. Eloina RAMIREZ PGY-2. Serg Eduardo DO PGY-1.
[2025-07-25 20:00] VITALS: BP 126/71; PULSE 94; RESP 16; TEMP 36.5; O2SAT 98
[2025-07-26] VITALS: BP 104/58; PULSE 89; RESP 18; TEMP 36.4; O2SAT 97
[2025-07-26 04:00] VITALS: BP 110/60; PULSE 67; RESP 16; TEMP 36.1; O2SAT 99
[2025-07-26 05:47] LABS: Basophils # (Auto) 0.0 Thou/mm3 (0.0-0.2); Basophils % (Auto) 0 % (0-2.5); Eosinophils # (Auto) 0.0 Thou/mm3 (0.0-0.5); Eosinophils % (Auto) 0 % (0-10); Hematocrit 34.8 % (41.0-53.0); Hemoglobin 11.6 g/dL (13.5-16.0); Immature Granulocytes Auto 0.10 Thou/mm3 (0.00-0.00); Lymphocytes # (Auto) 1.4 Thou/mm3 (1.0-4.8); Lymphocytes % (Auto) 9 % (10-50); Mean Corpuscular HGB Conc 33.3 g/dl (31.0-37.0); Mean Corpuscular Hemoglobin 29.0 pg (25.0-35.0); Mean Corpuscular Volume 87 fL (80-100); Monocytes # (Auto) 0.9 Thou/mm3 (0.0-0.8); Monocytes % (Auto) 6 % (0-12); Neutrophils # (Auto) 13.4 Thou/mm3 (1.8-7.7); Neutrophils % (Auto) 85 % (37-80); Nucleated Red Blood Cell # 0.00 Thou/mm3 (0.00-0.00); Nucleated Red Blood Cell % 0 /100 WBC (0); Platelet Count 263 Thou/mm3 (140-440); RDW Standard Deviation 42.6 fL (35.1-43.9); Red Blood Count 4.00 Miln/mm3 (4.50-5.90); White Blood Count 15.8 Thou/mm3 (3.8-10.6)
[2025-07-26 06:09] LABS: Anion Gap 10 (7-16); BUN/Creatinine Ratio 10 Ratio (12-20); Blood Urea Nitrogen 10 mg/dL (9-23); Calcium 9.3 mg/dL (8.3-10.6); Carbon Dioxide 22.9 mMol/L (20.0-31.0); Chloride 111 mMol/L (98-107); Creatinine (Component) 1.0 mg/dL (0.6-1.3); Estimated Creatinine Clearance 110.4 mL/min (>60); Glucose 119 mg/dL (74-106); Magnesium 2.0 mg/dL (1.6-2.6); Osmolality,Calculated 286 (275-295); Phosphorous 3.6 mg/dL (2.4-5.1); Potassium 4.1 mMol/L (3.4-5.1); Sodium 144 mMol/L (136-145); eGFR > 60 See Note
[2025-07-26 08:00] VITALS: BP 120/79; PULSE 75; RESP 16; TEMP 35.6; O2SAT 98
[2025-07-26] MEDS: cefTRIAXone/D5w 1gm IV premix 1 GM/50 ML BAG IV (08:49)
[2025-07-26] MEDS: HEPARIN SOD INJ 5000 UNIT/ML VIAL SC (08:49)
[2025-07-26] MEDS: VANCOMYCIN/D5W 1500 MG IVPB 300 ML 120 MG IV (10:08)
--- NOTE | 2025-07-26 11:48 | ESDS_ITS ---
<Statement entered by Coty Ryan MD - 08/07/25 09:06> I reviewed above note and agree with findings and plans. I have also personally examined the patient with medicine team and went over assessment and plan with medical team including food and beverage intern and resident physician. <Statement entered by Kirk Duvall MD - 07/26/25 13:46> Note reviewed and agree with care plan as documented. Please refer to the note below for further details. Plan discussed with attending physician Dr. Shelby Duvall MD PGY-2 Internal Medicine Planned Discharge Date 07/26/25 DS: Providers Provider Date of admission: 07/25/25 01:16 Primary care physician: Physician No Primary/Family Admitting Provider: Kathryn Moe MD Attending Provider on Admission: Kathryn Moe MD Attending Provider on DC: Coty Ryan MD Discharging Provider: Serg Eduardo DO DS: Diagnosis Discharge Diagnosis (1) Cellulitis: Status: Acute Qualifiers: Laterality: right Site of cellulitis: extremity Site of cellulitis of extremity: lower extremity Qualified Code(s): L03.115 - Cellulitis of right lower limb (2) Lymphadenopathy, inguinal: Status: Acute Problem List Completed Was Problem List Reviewed/Reconciled?: Yes Hospital Course Hospital Course Hospital course: Hospital Course: 40-year-old male with no significant past medical history presented with 1 day of generalized body weakness, right leg pain, and right leg weakness on 07/24/2025. Over the past year and a half he has had recurrent cellulitis every approximately 3 months. He was admitted for management of his cellulitis. The patient was treated with IV ceftriaxone and vancomycin. During the patient's hospital stay, his potassium dropped to 2.5. It was corrected with oral potassium supplementation and returned to level of 4.1. On discharge the patient's right lower extremity cellulitis area of erythema decreased in size. His fever and tachycardia resolved. His lactic acidosis also resolved. He was told to follow-up with his PCP regarding his recurrent cellulitis and to inquire about consultation by a vascular surgeon due to his recurring cellulitis. Problem List: #Possible Sepsis in setting of right leg cellulitis #Leukocytosis #Lactic acidosis (Resolved) #Hypokalemia (Resolved) Discharge Instructions: ? Continue taking all other home medications as prescribed ? Follow-up with PCP within 1-2 weeks of discharge, follow-up with autoimmune testing, ask for referral to vascular surgery ? Started on cephalexin 500 mg four times per day and doxycycline 100 mg twice per day, for a total of 10 days for both ? If you do not have a PCP, you can follow-up at the [facility] (you can call [phone] to make an appointment) ? Return to ED if symptoms worsen or recur The patient was seen and discussed with my attending physician Dr. Ryan and my senior resident Dr. Eloina RAMIREZ PGY-2. Serg Eduardo DO PGY-1 Time Spent with Patient Time attestation: Total time spent providing and/or coordinating discharge services: More than 50% Time spent: Greater than 30 minutes Exam Vital Signs Temp Pulse Resp BP Pulse Ox O2 Del Method 96.0 F L 75 16 120/79 98 Room Air 07/26/25 08:00 07/26/25 08:00 07/26/25 08:00 07/26/25 08:00 07/26/25 08:00 07/26/25 08:00 Narrative Exam General: Awake and in no acute distress. Conversational and non-toxic appearing. Neurologic: GCS 15. Alert and oriented x3, no gross neurological deficit, and patient able to move all 4 extremities. HEENT: Normocephalic, atraumatic, mucous membranes moist. Pupils reactive to light. Heart: Regular rate and rhythm, normal S1 and S2, no murmurs. Lungs: Clear to auscultation bilaterally with no wheezing or crackles. Abdomen: Soft, nondistended, nontender, positive bowel sounds. No guarding or rebound tenderness. Extremities: Right lower extremity area of erythema approximately 2 inches x 4 inches, adjacent approximately 2 inch horizontal scar superior to the area of erythema. The area of erythema is warmer than the surrounding skin to the touch. It is not tender. No edema. 2+ radial and dorsalis pedis pulses bilaterally. Skin: Warm. Dry. No rash or ecchymoses. Discharge Plan Plan Patient Disposition: HOME (Self Care) Care Plan Goals: ? Continue taking all other home medications as prescribed ? Follow-up with PCP within 1-2 weeks of discharge, follow-up with autoimmune testing, ask for referral to vascular surgery ? Started on cephalexin 500 mg four times per day and doxycycline 100 mg twice per day, for a total of 10 days for both ? If you do not have a PCP, you can follow-up at the [facility] (you can call [phone] to make an appointment) ? Return to ED if symptoms worsen or recur Prescriptions/Referrals Prescriptions/Med Rec: New doxycycline hyclate 100 mg tablet 100 mg PO BID 10 Days Qty: 20 0RF cephalexin 500 mg capsule 500 mg PO QID 10 Days Qty: 40 0RF Referrals: No Primary/Family,Physician [Primary Care Provider] Patient/Caregiver Discharge Instructions Education Materials: Sepsis, Discharge Instructions for Cellulitis, Understanding Sepsis Print Language: Sinhala Stand Alone Forms: Mine Award Info., Patient Portal Info Letter Discharge Order Discharge Orders: Discharge (Routine); Ordered 07/26/25 Ordered By: Kirk Duvall Quality Discharge Quality Measures none
[2025-07-26 14:20] VITALS: BP 122/77; PULSE 72; RESP 16; TEMP 36.3; O2SAT 99
== END 2025-07-26 14:45 | disposition home or self-care (01) | DRG 383 ==
LOC: SERX 23:57 → SERHOLD 07-25 01:53 → S3NX 07-25 02:50
PROVIDERS: Admitting Provider Student in an Organized Health Care Education/Training Program; Emergency Provider Emergency Medicine; Visit Provider Student in an Organized Health Care Education/Training Program
DX: L03.115 Cellulitis of right lower limb (principal); R59.0 Localized enlarged lymph nodes; E87.20 Acidosis, unspecified; E87.6 Hypokalemia; W11.XXXA Fall on and from ladder, initial encounter
CPT/HCPCS: 36415; 71045; 80048; 80053; 81001; 82248; 83605; 83735; 84100; 84145; 85025; 85652; 86140; 87040; 87081; 87400; 87634; 87651; 87811; 96361; 96365; 96372; 96375; 99284; J0689; J0696; J1644; J1885; J2919; J3373; J7030; A9270